=== PATIENT | male | born 1965 | race Caucasian/White ===

== ENCOUNTER → 2018-10-31 | Outpatient (CLI) | payer OTHER ==
--- NOTE | 2018-10-31 17:27 | RAD ---
Examination: 2 views of the right knee and 2 views of the lumbar spine HISTORY: History of osteoarthritis COMPARISON: None available. FINDINGS: Moderate joint space loss identified in the medial, lateral, patellofemoral compartments. Small knee joint effusion. Moderate intervertebral disc height loss identified in the lumbar spine. Small anterior osteophyte formation identified at L1, L2, L3 vertebral levels with the facets are well aligned. Moderate neural foraminal narrowing identified at L3-L4, L4-L5, L5-S1 vertebral levels. IMPRESSION: 1. Moderate tricompartmental degenerative changes right knee 2. Moderate degenerative changes lumbar spine. If pain persists recommend MRI. Electronically signed by: Yousif Blevins MD (10/31/2018 5:24 PM) [facility]
== END | disposition home or self-care (01) ==
LOC: RAD 09:13
PROVIDERS: ATTEND Internal Medicine
DX: M47.896 Other spondylosis, lumbar region (principal); M17.11 Unilateral primary osteoarthritis, right knee; M48.07 Spinal stenosis, lumbosacral region; M25.461 Effusion, right knee
CPT/HCPCS: 72100; 73560